=== PATIENT | female | born 1985 | race Caucasian/White ===

== ENCOUNTER → 2021-03-18 | Outpatient (CLI) | payer OTHER ==
[~2021-03-18] MED LIST: LEVE500 PO; OXYC5 PO; PRENATAL TABLE1 EAC2 PO; PROM25 PO
== END ==
LOC: LAB SHORT 18:32
DX: O46.90 Antepartum hemorrhage, unspecified, unspecified trimester (principal); O46.001 Antepartum hemorrhage with coagulation defect, unspecified, first trimester; O46.91 Antepartum hemorrhage, unspecified, first trimester; Z3A.00 Weeks of gestation of pregnancy not specified
CPT/HCPCS: 84702

== ENCOUNTER 2021-03-21 08:14 | Emergency (ER) | payer OTHER ==
[~2021-03-21] VITALS: Ht 160 cm; Wt 90.7 kg
[2021-03-21 10:06] LABS: Source, Urine Clean Catch
[2021-03-21] MEDS ORDERED: Norco 5-325 Ta1 EACH PO (10:22)
[2021-03-21 10:37] LABS: Appearance, Urine Clear (Clear); Bilirubin, Urine Neg (Neg); Blood, Urine Neg (Neg); Color, Urine Yellow (P-Yellow); Glucose Qualitative, Urine Neg (Neg); Ketones, Urine Neg (Neg); Leukocyte Esterase, Urine Neg (Neg); Nitrite, Urine Neg (Neg); Protein, Urine Neg (Neg); Urobilinogen, Urine NORM (Normal)
== END 2021-03-21 11:02 | disposition home or self-care (01) ==
LOC: ER 08:14
PROVIDERS: Physician Assistant
DX: R10.9 Unspecified abdominal pain (principal); Z3A.01 Less than 8 weeks gestation of pregnancy; Z88.0 Allergy status to penicillin; Z88.5 Allergy status to narcotic agent; Z79.899 Other long term (current) drug therapy
CPT/HCPCS: 81003; 99284; J1885; J2405